=== PATIENT | female | born 1970 | race Two or more races ===

== ENCOUNTER → 2017-04-16 16:33 | Outpatient (CLI) | payer BC ==
[2009-09-12 08:07] VITALS: BMI 30.4
== END | disposition home or self-care (01) ==
LOC: D.MAMMO 09:00
DX: Z12.31 Encounter for screening mammogram for malignant neoplasm of breast (principal)

== ENCOUNTER → 2017-05-13 18:01 | Outpatient (CLI) | payer BC ==
[2009-09-12 08:07] VITALS: BMI 30.4
== END | disposition home or self-care (01) ==
LOC: D.MAMMO 13:30
DX: R92.8 Other abnormal and inconclusive findings on diagnostic imaging of breast (principal)

== ENCOUNTER → 2017-11-22 10:59 | Outpatient (CLI) | payer BC ==
[2009-09-12 08:07] VITALS: BMI 30.4
== END | disposition home or self-care (01) ==
LOC: D.MAMMO 11-04 11:00
DX: N63.10 Unspecified lump in the right breast, unspecified quadrant (principal)